=== PATIENT | female | born 1960 | race Caucasian/White ===

== ENCOUNTER 2023-04-08 16:25 | Emergency (ER) | payer OTHER, BC ==
[2023-04-08] MEDS ORDERED: Boostrix 0.5 ML (Tdap) VIAL (>/=7 yrs of age) ONE (17:19)
[2023-04-08] MEDS ORDERED: Bacitracin 1 PK ONE (17:44)
== END 2023-04-08 17:46 | disposition home or self-care (01) ==
LOC: ERS 16:25
DX: S01.25XA Open bite of nose, initial encounter (principal); E78.5 Hyperlipidemia, unspecified; Z23 Encounter for immunization; Z79.899 Other long term (current) drug therapy; Z86.718 Personal history of other venous thrombosis and embolism; Z79.02 Long term (current) use of antithrombotics/antiplatelets; Z79.01 Long term (current) use of anticoagulants; W54.0XXA Bitten by dog, initial encounter
CPT/HCPCS: 90471; 90715